=== PATIENT | female | born 1960 | race Two or more races ===

== ENCOUNTER 2018-09-22 21:39 | Emergency (ER) | payer SELFPAY ==
[~2018-09-22] VITALS: Ht 152.4 cm; Wt 65.8 kg
--- NOTE | 2018-09-22 22:03 | NUR ---
BIB [facility] FOR ONGOING FEVER WORSE AT NIGHT FOR THE PAST 4 WKS. + WEAKNESS, + NIGHT SWEAT, + PRODUCTIVE COUGH PT HAD A DENTAL IMPLANT BEGINNING OF THE AUGUST. HAD A - CXR AT AN URGENT [facility]ARE LAST WEEK. AND HAD COMPLETED MULTIPLE DOSES OF DIFFRENT TYPEDS OF ATB. PLACED EMILY MONITOR,
[2018-09-22] MEDS ORDERED: ACETAMINOPHEN ES 500 MG TABLET ONE (22:29)
[2018-09-22] MEDS ORDERED: IV NS 0.9% 1,000 ML BAG IV ONE (22:30)
[2018-09-22] MEDS ORDERED: ACETAMINOPHEN ES 500 MG TABLET PO ONE (22:30)
[2018-09-22 23:00] LABS: BASOPHILS # (AUTO) 0.1 /CMM (0.0-0.2); BASOPHILS % (AUTO) 0.8 % (0.0-2.0); EOSINOPHILS % (AUTO) 0.6 % (0.0-6.0); HEMATOCRIT 35 % (33-45); LYMPHOCYTES # (AUTO) 2.3 /CMM (0.8-4.8); MEAN CORPUSCULAR HGB CONC 34 g/dl (31.0-36.0); MEAN CORPUSCULAR VOLUME 88 fL (82-100); MONOCYTES % (AUTO) 9.2 % (2.0-12.0); NEUTROPHILS # (AUTO) 7.5 /CMM (1.8-8.9); NEUTROPHILS % (AUTO) 68.4 % (43.0-81.0); PLATELET COUNT (AUTO) 389 /CMM (150-450); WHITE BLOOD COUNT (AUTO) 10.9 K/uL (4.3-11.0)
[2018-09-22 23:08] LABS: CALCIUM, SERUM 9.4 mg/dL (8.5-10.1); CARBON DIOXIDE 31 mmol/L (21-32); CHLORIDE 100 mmol/L (98-107); CREATININE 0.8 mg/dL (0.6-1.3); GLUCOSE 133 mg/dL (74-106); POTASSIUM 3.9 mmol/L (3.5-5.1); SODIUM SERUM 138 mmol/L (136-145); UREA NITROGEN, BLOOD 16 mg/dL (7-18)
[2018-09-22 23:12] LABS: APPEARANCE,URINE Clear (CLEAR); BILIRUBIN,URINE Negative (NEGATIVE); BLOOD, URINE Negative Ery/uL (NEGATIVE); COLOR,URINE Yellow (YELLOW); KETONES,URINE Negative (NEGATIVE); LEUKOCYTE ESTERASE ,URINE Negative (NEGATIVE); NITRITE, URINE Negative (NEGATIVE); PH,URINE 7.5 (5.0-8.0); PROTEIN,URINE Negative (NEGATIVE); UGLUCOSE Negative (NEGATIVE); UROBILINOGEN,URINE 0.2 EU/dL (0.2)
[2018-09-22 23:14] LABS: ALANINE AMINOTRANSFERASE 65 U/L (12-78); ALKALINE PHOSPHATASE 112 U/L (46-116); ASPARTATE AMINOTRANSFERASE 27 U/L (15-37); BILIRUBIN,DIRECT 0.1 mg/dL (0.0-0.2); BILIRUBIN,TOTAL 0.3 mg/dL (0.2-1.0); TOTAL PROTEIN, SERUM 8.1 g/dL (6.4-8.2)
--- NOTE | 2018-09-23 00:04 | NUR ---
at the bed side
--- NOTE | 2018-09-23 01:04 | NUR ---
Patient discharged to home in stable condition. Written and verbal after care instructions given. Patient verbalizes understanding of instruction.
[2018-09-23 01:06] VITALS: BP 136/77
== END 2018-09-23 01:07 | disposition home or self-care (01) ==
LOC: ER 21:39
DX: B34.9 Viral infection, unspecified (principal); I10 Essential (primary) hypertension
CPT/HCPCS: 36415; 71045; 80048; 80076; 81001; 83605; 84484; 85025; 85730; 87040 ×2; 87086; 87804 ×2; 93005; 99284; J7030; 81000-TC; 87400

== ENCOUNTER 2025-01-21 13:34 | Inpatient (IN) | payer BC ==
[~2025-01-21] VITALS: Ht 157.5 cm; Wt 70.8 kg
[2025-01-21 14:12] LABS: PLATELET COUNT (AUTO) 215 K/uL (150-450); RED BLOOD CELL COUNT(AUTO) 5.20 MIL/uL (4.0-5.2); RED CELL DISTRIBUTION WIDTH 12.7 % (11.5-15.0); WHITE BLOOD COUNT (AUTO) 12.7 K/uL (4.3-11.0)
[2025-01-21 14:24] LABS: CALCIUM, SERUM 9.3 mg/dL (8.5-10.1); CREATININE 0.7 mg/dL (0.6-1.3); SODIUM SERUM 138.0 mmol/L (136-145); UREA NITROGEN, BLOOD 9.0 mg/dL (7-18)
[2025-01-21 14:28] LABS: ASPARTATE AMINOTRANSFERASE 20.0 U/L (15-37); TOTAL PROTEIN, SERUM 8.3 g/dL (6.4-8.2)
[2025-01-21] MEDS ORDERED: KETOROLAC TROMETHAMINE INJ 30 MG/ML VIAL ONE (14:34)
[2025-01-21] MEDS ORDERED: FAMOTIDINE/PF INJ 20 MG/2 ML VIAL IV ONE (14:34)
[2025-01-21] MEDS ORDERED: ONDANSETRON HCL/PF 4 MG/2 ML VIAL ONE (14:34)
[2025-01-21] MEDS: FAMOTIDINE/PF INJ 20 MG/2 ML VIAL IV ONE (14:43)
[2025-01-21] MEDS: IV NS 0.9% 1,000 ML BAG IV ONE ×2 (14:43→16:48)
[2025-01-21] MEDS: ONDANSETRON HCL/PF 4 MG/2 ML VIAL IVP ONE (14:44)
[2025-01-21] MEDS: KETOROLAC TROMETHAMINE 15 MG/ML VIAL IV ONE (14:44)
[2025-01-21] MEDS ORDERED: ASPIRIN 325 MG TABLET ONE (15:39)
[2025-01-21 15:40] LABS: APPEARANCE,URINE CLEAR (CLEAR); BLOOD, URINE NEGATIVE Ery/uL (NEGATIVE); LEUKOCYTE ESTERASE ,URINE NEGATIVE (NEGATIVE); NITRITE, URINE NEGATIVE (NEGATIVE); UGLUCOSE NEGATIVE (NEGATIVE)
[2025-01-21] MEDS: ASPIRIN 325 MG TABLET PO ONE (15:40)
[2025-01-21 15:53] LABS: ADD URINE CULTURE NO; SQUAMOUS EPITHELIAL CELL,UR 0-2 /HPF (None Seen)
[2025-01-21] MEDS ORDERED: PIPERACI/TAZO 3.375GM/D5W 50ML PB IV ONE (16:38)
[2025-01-21] MEDS: PIPERACILLIN /TAZOBACTAM 3.375 G in IV D5W 50 ML IV ONE (16:48)
[2025-01-21 16:52] LABS: INR 0.99 (0.91-1.10)
[2025-01-21 16:57] LABS: LACTIC ACID 2.5 mmol/L (0.4-2.0)
[2025-01-21 20:00] VITALS: BP 153/96; TEMP 98.4; O2SAT 98
[2025-01-21] MEDS: HYDROMORPHONE 1 MG/1 ML DISP.SYRIN IV PRN (21:59)
[2025-01-21] MEDS: IV D5/0.45 NACL 1,000 ML IV PRN (22:07)
[2025-01-22] VITALS (9 sets, daily range): BP systolic 103–151; BP diastolic 57–85; TEMP 98–100.9; O2SAT 95–98
[2025-01-22] MEDS ORDERED: PIPERACILLIN /TAZOBACTAM 3.375 G in IV D5W 50 ML IV SCH
[2025-01-22] MEDS ORDERED: PIPERACI/TAZO 3.375GM/D5W 50ML PB IV ONE ×2 (00:41→05:21)
[2025-01-22] MEDS: ZOSYN IVPB 3.375 G in IV D5W 50ml IV SCH (00:47)
[2025-01-22] MEDS: ACETAMINOPHEN 325 MG TABLET PO PRN (05:26)
[2025-01-22 06:35] LABS: PLATELET COUNT (AUTO) 174 K/uL (150-450); RED BLOOD CELL COUNT(AUTO) 4.45 MIL/uL (4.0-5.2); RED CELL DISTRIBUTION WIDTH 12.7 % (11.5-15.0); WHITE BLOOD COUNT (AUTO) 13.2 K/uL (4.3-11.0)
[2025-01-22 06:57] LABS: CALCIUM, SERUM 8.0 mg/dL (8.5-10.1); CREATININE 0.7 mg/dL (0.6-1.3); PHOSPHORUS 2.9 mg/dL (2.5-4.9); SODIUM SERUM 139.0 mmol/L (136-145); UREA NITROGEN, BLOOD 8.0 mg/dL (7-18)
[2025-01-22 07:08] LABS: LDL 126.0 mg/dL (0-99)
[2025-01-22] MEDS: POTASSIUM CHLORIDE 20 MEQ POWDER PACKET NG SCH (08:23)
[2025-01-22] MEDS: PANTOPRAZOLE 40 MG VIAL IV SCH (08:23)
[2025-01-22] MEDS: ASPIRIN 81 MG TAB.CHEW PO SCH (08:23)
[2025-01-22] MEDS ORDERED: INDOCYANINE GREEN 25 MG/VIAL VIAL IJ ONE (10:57)
[2025-01-22] MEDS ORDERED: ANESTHESIA TRAY IN PYXIS 1 EA TRAY MC ONE (10:57)
[2025-01-22] MEDS ORDERED: BUPIVACAINE 0.5 % PF 150 MG/30 ML VIAL ONE (10:57)
[2025-01-22] MEDS ORDERED: LIDOCAINE 1%-EPI 1:100,000 20 ML VIAL ONE (10:58)
[2025-01-22] MEDS ORDERED: SUGAMMADEX SODIUM 200 MG/2 ML VIAL IV ONE (11:22)
[2025-01-22] MEDS ORDERED: FENTANYL PF 100MCG/2ML AMPUL ONE ×2 (11:23→14:46)
[2025-01-22] MEDS ORDERED: MIDAZOLAM HCL 2 MG/2ML VIAL ONE (11:23)
[2025-01-22] MEDS ORDERED: ROCURONIUM BROMIDE 50 MG/5 ML ONE (11:23)
[2025-01-22] MEDS: PIPERACILLIN /TAZOBACTAM 3.375 G in IV D5W 100 ML IV SCH (15:20)
[2025-01-23] VITALS: BP 96/58; TEMP 97.3; O2SAT 96
[2025-01-23 04:00] VITALS: BP 117/71; TEMP 97.3; O2SAT 96
[2025-01-23 06:39] LABS: ASPARTATE AMINOTRANSFERASE 64.0 U/L (15-37); CALCIUM, SERUM 8.1 mg/dL (8.5-10.1); CREATININE 0.6 mg/dL (0.6-1.3); PHOSPHORUS 2.5 mg/dL (2.5-4.9); SODIUM SERUM 141.0 mmol/L (136-145); TOTAL PROTEIN, SERUM 6.2 g/dL (6.4-8.2); UREA NITROGEN, BLOOD 9.0 mg/dL (7-18)
[2025-01-23 06:49] LABS: PLATELET COUNT (AUTO) 153 K/uL (150-450); RED BLOOD CELL COUNT(AUTO) 3.89 MIL/uL (4.0-5.2); RED CELL DISTRIBUTION WIDTH 12.8 % (11.5-15.0); WHITE BLOOD COUNT (AUTO) 10.7 K/uL (4.3-11.0)
[2025-01-23 08:00] VITALS: BP 106/67; TEMP 97.5; O2SAT 96
[2025-01-23] MEDS: PANTOPRAZOLE 40 MG TABLET.DR PO SCH (08:52)
[2025-01-23] MEDS: ATORVASTATIN 40 MG TABLET PO SCH (08:52)
[2025-01-23] MEDS: ENOXAPARIN SODIUM 40 MG/0.4 ML DISP.SYRIN SQ SCH (10:56)
[2025-01-23] MEDS ORDERED: CLON0.1T PO (14:02)
[2025-01-23] MEDS ORDERED: IBUP-1957 PO (14:02)
[2025-01-23 16:00] VITALS: BP 123/73; TEMP 98.4; O2SAT 95
[2025-01-24] VITALS: BP 132/81; TEMP 97.7; O2SAT 95
[2025-01-24] MEDS: TRAZODONE 50 MG TABLET PO ONE (02:30)
[2025-01-24 08:00] VITALS: BP 164/97; TEMP 98.4; O2SAT 95
[2025-01-24 08:46] VITALS: BP 139/70
[2025-01-24] MEDS: ONDANSETRON HCL/PF 4 MG/2 ML VIAL IVP PRN (09:38)
[2025-01-24 13:08] LABS: CALCIUM, SERUM 8.0 mg/dL (8.5-10.1); CREATININE 0.7 mg/dL (0.6-1.3); PHOSPHORUS 2.3 mg/dL (2.5-4.9); SODIUM SERUM 144.0 mmol/L (136-145); UREA NITROGEN, BLOOD 11.0 mg/dL (7-18)
[2025-01-24 13:43] LABS: PLATELET COUNT (AUTO) 198 K/uL (150-450); RED BLOOD CELL COUNT(AUTO) 3.54 MIL/uL (4.0-5.2); RED CELL DISTRIBUTION WIDTH 13.0 % (11.5-15.0); WHITE BLOOD COUNT (AUTO) 8.1 K/uL (4.3-11.0)
[2025-01-24] MEDS ORDERED: CIPR-262 PO (13:59)
[2025-01-24] MEDS ORDERED: METR500T PO (13:59)
[2025-01-24] MEDS ORDERED: ASPI-1169 PO (14:01)
[2025-01-24] MEDS ORDERED: ATOR40TA PO (14:01)
[2025-01-24] MEDS ORDERED: SENN1TAB77 PO (14:19)
[2025-01-24] MEDS ORDERED: HYDR-4303 PO (14:19)
[2025-01-24] MEDS: POTASSIUM CHLORIDE 20 MEQ TAB.PRT.SR PO ONE (14:28)
[2025-01-24] MEDS ORDERED: NEUTRA PHOS 1 POWD.PACKET PO ONE (17:00)
== END 2025-01-24 16:00 | disposition home or self-care (01) | DRG 710 ==
LOC: ER 13:34 → TELE1 19:38 → MEDSG1 01-23 10:32
PROVIDERS: ADMIT Nurse Practitioner Family; ATTEND Nurse Practitioner Acute Care
PROC: BF53200 Other Imaging of Gallbladder and Bile Ducts using Fluorescing Agent, Indocyanine Green Dye, Intraoperative (ICD-10-PCS; 2025-01-22)
PROC: 0FT44ZZ Resection of Gallbladder, Percutaneous Endoscopic Approach (ICD-10-PCS; principal; 2025-01-22 11:30)
DX: A41.9 Sepsis, unspecified organism (principal); I21.A1 Myocardial infarction type 2; R65.20 Severe sepsis without septic shock; K80.01 Calculus of gallbladder with acute cholecystitis with obstruction; I10 Essential (primary) hypertension; K57.30 Diverticulosis of large intestine without perforation or abscess without bleeding; Z79.82 Long term (current) use of aspirin; Z79.899 Other long term (current) drug therapy; E78.5 Hyperlipidemia, unspecified; D25.9 Leiomyoma of uterus, unspecified
CPT/HCPCS: 36415; 71045-TC; 76705-TC; 78226; 80048-TC; 80061-TC; 80076-TC; 81001; 83605-TC; 83690-TC; 83735-TC; 84100-TC; 84484-TC; 85025-TC; 85730-TC; 86850-TC; 87040-TC; 87081-TC; 88304-TC; 93307-TC; 97116-TC; 97530-TC; A6209; A9537; G0378; J0330; J0690; J1100; J1171; J1308; J1650; J1885; J2250; J2405; J2470; J2543; J2704; J2765; J3010; J3490; J7030; J7040; J7050; J7060; Q9968